=== PATIENT | female | born 2000 | race African-American/Black ===

== ENCOUNTER 2024-09-08 20:29 | Emergency (ER) | payer MEDICAID ==
[~2024-09-08] VITALS: Ht 170.2 cm; Wt 61.2 kg
[2024-09-08 21:03] VITALS: BP 122/68; TEMP 98.2; O2SAT 99
[2024-09-08] MEDS ORDERED: POLY10DR3 EACHEYE (21:22)
== END 2024-09-08 21:31 | disposition home or self-care (01) ==
LOC: ER 20:37
DX: H10.9 Unspecified conjunctivitis (principal); F17.200 Nicotine dependence, unspecified, uncomplicated; Z60.2 Problems related to living alone